=== PATIENT | female | born 1985 | race Caucasian/White ===

== ENCOUNTER 2017-08-03 13:48 | Emergency (ER) | payer OTHER ==
[~2017-08-03] VITALS: Ht 160 cm; Wt 56.0 kg
[2017-08-03 13:53] VITALS: TEMP 36.9; Ht 160 cm; Wt 56.0 kg
[2017-08-03] MEDS ORDERED: KETOROLAC TROMETHAMINE 30 MG/ML VIAL IV STA (14:05)
[2017-08-03] MEDS ORDERED: OPTIRAY 320 IV PRN (14:15)
[2017-08-03 14:21] LABS: BASO % 0.1 %; BASO ABS # 0.01 K/uL (0-0.2); EOS % 0.4 %; EOS ABS # 0.05 K/uL (0-0.5); HEMATOCRIT 38.2 % (37-47); HEMOGLOBIN 13.1 g/dL (12.0-16.0); IG# 0.04 K/uL (0.00-0.02); LYMPH % 12.8 %; LYMPH ABS # 1.52 K/uL (1.2-3.4); MEAN CELL VOLUME 90.5 fL (80-100); MEAN CORPUSCULAR HGB CONC 34.3 g/dl (32-36); MEAN PLATELET VOLUME 10.7 fL (7.4-10.4); MONO % 6.5 %; MONO ABS # 0.78 K/uL (0.11-0.59); NEUT % 79.9 %; NEUT ABS # 9.52 K/uL (1.4-6.5); PLATELET COUNT 224 K/uL (130-400); RED CELL DISTRIBUTION WIDTH CV 12.9 % (11.5-14.5); RED CELL DISTRIBUTION WIDTH SD 42.7 fL (36.4-46.3); WHITE BLOOD COUNT 11.92 K/uL (4.8-10.8)
--- NOTE | 2017-08-03 14:28 | EMERGENCY ROOM VISIT NOTE ---
History Report prepared by Kristianibalissa: Cyn Casanova Under the Supervision of: Dr. Travis Porter M.D. First contact with patient: 13:53 Chief Complaint: ABDOMINAL PAIN Stated Complaint: ABDOMINAL PAIN Nursing Triage Summary: pt to the ED via EMS with c/o abd pain and cramping after having IUD placed today at [facility] no bleeding History of Present Illness The patient is a 32 year old female who presents to the Emergency Room with complaints of persistent abdominal pain since earlier this morning. She had an IUD placed this morning at [facility]. She rates her pain as a 6 /10 to an 8/10 in severity and describes it as feeling like "cramping". Ibuprofen and heat pads have provided minor relief. She has experienced no vaginal bleeding since the procedure. She also complains of some nausea with the pain. The patient denies LOC, headache, fevers, chills, diaphoresis, visual changes, neck pain, chest pain, breathing difficulties, vomiting, back pain, melena, hematochezia, urinary symptoms, numbness, weakness, lymphadenopathy, rash, or other complaints. Source of History: patient Onset: earlier this morning Position: abdomen Symptom Intensity: 6/10 to 8/10 Quality: cramping Timing: other (persistent) Associated Symptoms: + nausea Review of Systems See HPI for pertinent positives and negatives. A total of ten systems were reviewed and were otherwise negative. Past Medical & Surgical Medical Problems: (1) Anxiety (2) Depression Social History Alcohol Use: occasionally Drug Use: none Marital Status: single Housing Status: lives with roommate Occupation Status: [id number] student Current/Historical Medications Scheduled Bupropion (Wellbutrin-Xl), 300 MG PO DAILY Buspirone Hcl (Buspirone Hcl), 10 MG PO TID Allergies Coded Allergies: No Known Allergies (Unverified , 08/03/17) Physical Exam Vital Signs Date Time Temp Pulse Resp B/P (MAP) Pulse Ox O2 Delivery O2 Flow Rate FiO2 08/03/17 16:19 93 15 121/87 97 08/03/17 15:13 78 23 121/78 100 Room Air 08/03/17 14:35 68 08/03/17 13:53 36.9 58 18 116/76 98 Physical Exam GENERAL: Awake, alert, uncomfortable-appearing, in no distress HENT: Normocephalic, atraumatic. Oropharynx unremarkable. EYES: Normal conjunctiva. Sclera non-icteric. NECK: Supple. No nuchal rigidity. FROM. No masses. RESPIRATORY: Clear to auscultation. No wheezes. CARDIAC: Normal rate. Normal rhythm. No murmurs. No rubs. Extremities warm and well perfused. Pulses equal. No JVD. GI: Soft, non-distended. Bilateral lower abdominal tenderness to palpation. No rebound or guarding. No masses. RECTAL: Deferred. MUSCULOSKELETAL: Atraumatic. Chest examination reveals no tenderness. The back is symmetrical on inspection without obvious abnormality. There is no CVA tenderness to palpation. No joint edema. LOWER EXTREMITIES: Calves are equal size bilaterally and non-tender. No edema. No discoloration. NEURO: Normal sensorium. No sensory or motor deficits noted. SKIN: No rash or jaundice noted. Medical Decision & Procedures ER Provider Diagnostic Interpretation: Radiology results as stated below per my review and radiologist interpretation: ABD/PELVIS IV CONTRAST ONLY CT DOSE: 349.87 mGycm HISTORY: Pain lower abd pain, s/p IUD placement. ?perforation TECHNIQUE: Multiaxial CT images of the abdomen and pelvis were performed following the use of intravenous contrast. A dose lowering technique was utilized adhering to the principles of ALARA. COMPARISON STUDY: None. FINDINGS: The lung bases are clear. The liver, spleen, gallbladder, pancreas, kidneys, and adrenal glands are within normal limits. No bowel wall thickening or obstruction. The pelvic organs are unremarkable. No suspicious lytic or blastic osseous lesions. No evidence for abscess or collection. Intrauterine device appearing to be within the central uterine canal. Normal appendix IMPRESSION: No significant abnormality identified within the abdomen or pelvis. Intrauterine device appears to be placed appropriately. No evidence for obstruction or perforation based on this exam. The above report was generated using voice recognition software. It may contain grammatical, syntax or spelling errors. Electronically signed by: Talha Giles M.D. 08/03/2017 3:05 PM Laboratory Results 08/03/17 14:10 Red Blood Count 4.22, Mean Corpuscular Volume 90.5, Mean Corpuscular Hemoglobin 31.0, Mean Corpuscular Hemoglobin Concent 34.3, Mean Platelet Volume 10.7, Neutrophils (%) (Auto) 79.9, Lymphocytes (%) (Auto) 12.8, Monocytes (%) (Auto) 6.5, Eosinophils (%) (Auto) 0.4, Basophils (%) (Auto) 0.1, Neutrophils # (Auto) 9.52, Lymphocytes # (Auto) 1.52, Monocytes # (Auto) 0.78, Eosinophils # (Auto) 0.05, Basophils # (Auto) 0.01 08/03/17 14:10 Test 08/03/17 14:10 08/03/17 15:20 White Blood Count 11.92 K/uL (4.8-10.8) Red Blood Count 4.22 M/uL (4.2-5.4) Hemoglobin 13.1 g/dL (12.0-16.0) Hematocrit 38.2 % (37-47) Mean Corpuscular Volume 90.5 fL (80-100) Mean Corpuscular Hemoglobin 31.0 pg (25-34) Mean Corpuscular Hemoglobin Concent 34.3 g/dl (32-36) Platelet Count 224 K/uL (130-400) Mean Platelet Volume 10.7 fL (7.4-10.4) Neutrophils (%) (Auto) 79.9 % Lymphocytes (%) (Auto) 12.8 % Monocytes (%) (Auto) 6.5 % Eosinophils (%) (Auto) 0.4 % Basophils (%) (Auto) 0.1 % Neutrophils # (Auto) 9.52 K/uL (1.4-6.5) Lymphocytes # (Auto) 1.52 K/uL (1.2-3.4) Monocytes # (Auto) 0.78 K/uL (0.11-0.59) Eosinophils # (Auto) 0.05 K/uL (0-0.5) Basophils # (Auto) 0.01 K/uL (0-0.2) RDW Standard Deviation 42.7 fL (36.4-46.3) RDW Coefficient of Variation 12.9 % (11.5-14.5) Immature Granulocyte % (Auto) 0.3 % Immature Granulocyte # (Auto) 0.04 K/uL (0.00-0.02) Anion Gap 5.0 mmol/L (3-11) Est Creatinine Clear Calc Drug Dose 101.5 ml/min Estimated GFR () 136.7 Estimated GFR (Non- 118.0 BUN/Creatinine Ratio 16.3 (10-20) Calcium Level 8.5 mg/dl (8.5-10.1) Total Bilirubin 0.2 mg/dl (0.2-1) Direct Bilirubin < 0.1 mg/dl (0-0.2) Aspartate Amino Transf (AST/SGOT) 19 U/L (15-37) Alanine Aminotransferase (ALT/SGPT) 24 U/L (12-78) Alkaline Phosphatase 88 U/L (45-117) Total Protein 6.4 gm/dl (6.4-8.2) Albumin 3.7 gm/dl (3.4-5.0) Lipase 131 U/L (73-393) Human Chorionic Gonadotropin, Qual NEG (NEG) Urine Color YELLOW Urine Appearance CLEAR (CLEAR) Urine pH 8.5 (4.5-7.5) Urine Specific [place] 1.045 (1.000-1.030) Urine Protein NEG (NEG) Urine Glucose (UA) NEG (NEG) Urine Ketones NEG (NEG) Urine Occult Blood NEG (NEG) Urine Nitrite NEG (NEG) Urine Bilirubin NEG (NEG) Urine Urobilinogen NEG (NEG) Urine Leukocyte Esterase NEG (NEG) Laboratory results reviewed by me Medications Administered Medications (Trade) Dose Ordered Sig/Saima Route Start Time Stop Time Status Last Admin Dose Admin Ketorolac Tromethamine (Toradol Inj) 10 mg NOW STAT IV 08/03/17 14:05 08/03/17 14:08 DC 08/03/17 14:16 10 MG Ondansetron HCl (Zofran Inj) 4 mg NOW STAT IV 08/03/17 15:26 08/03/17 15:28 DC 08/03/17 15:33 4 MG Hydromorphone HCl (Dilaudid Inj) 0.5 mg NOW STAT IV 08/03/17 15:26 08/03/17 15:28 DC 08/03/17 15:33 0.5 MG Acetaminophen/ Hydrocodone Bitart ([place]wl 5/325mg Home Pack) 1 homepack UD ONCE PO 08/03/17 16:15 08/03/17 16:16 DC 08/03/17 16:07 1 HOMEPACK Ondansetron HCl (ZOFRAN ODT 4MG Home Pack) 1 homepack UD ONCE PO 08/03/17 16:15 08/03/17 16:16 DC 08/03/17 16:07 1 HOMEPACK Laboratory results reviewed by me ED Course 1405: Toradol 10 mg IV. 1408: The patient was evaluated in room A4B. A complete history and physical exam was performed. 1525: I reevaluated the patient. She is feeling better but still in some pain. I will place orders. 1526: Dilaudid 0.5 mg IV, Zofran 4 mg IV. 1559: I reevaluated the patient. She is feeling much better. I discussed her results and discharge instructions and she verbalized complete understanding and agreement. 1615: Zofran 4 mg 1 homepack PO, [place]wl 5/325 mg 1 homepack PO. Medical Decision Triage Nursing notes reviewed. The patient's presentation and history were concerning for abdominal pain s/p IUD placement. Etiologies such as uterine perforation, uterine cramping, complication of IUD placement, appendicitis, diverticulitis, obstruction, inflammatory bowel disease, renal colic, PUD, biliary pathology, pancreatitis, mesenteric ischemia , aortic pathology, infections, genitourinary, UTI, perforated viscus, as well as others were entertained. Patient was evaluated. She was quite tender in the lower part of her abdomen. She was given a dose of IV Toradol. Her CBC revealed a mild leukocytosis. Chemistries unremarkable. The patient was sent for CT imaging. Patient had a unremarkable chemistry panel, urinalysis and test. She underwent CT imaging and this was negative. IUD appears to be in good position. The patient was feeling better but still had pain after the Toradol. She was given a small dose of IV Dilaudid. She was also given Zofran. Patient was reassessed. She was feeling much better and her pain was nearly resolved. I discussed conservative management with her. She was given a White Owl and Zofran home pack. She will use ibuprofen. She will follow-up with women's health tomorrow. If she worsens in any way she will be back. I gave my usual and customary discussion regarding this issue. By the evaluation outlined above other emergent etiologies such as those listed in the differential, as well as others, were deemed relatively unlikely. The patient was educated about the findings as listed above. All questions were answered and the patient was pleased with the treatment. Return instructions were outlined and the patient was discharged in stable condition. The patient was referred to [facility] for follow-up for a recheck of the current condition. Medication Reconcilliation Current Medication List: was personally reviewed by me Blood Pressure Screening Patient's blood pressure: Normal blood pressure Blood pressure disposition: Did not require urgent referral Impression Primary Impression: Lower abdominal pain Additional Impression: IUD (intrauterine device) in place Scribe Attestation The scribe's documentation has been prepared under my direction and personally reviewed by me in its entirety. I confirm that the note above accurately reflects all work, treatment, procedures, and medical decision making performed by me. Departure Information Dispostion Home / Self-Care Referrals [facility] (PCP) Patient Instructions My [facility] Additional Instructions ABDOMINAL PAIN INSTRUCTIONS: DO NOT drive, drink alcohol, operate machinery, or perform dangerous activities today. You were given medications in the ER that can affect your ability to safely function or operate a vehicle. Hydrocodone/acetaminophen 5/325mg: Take 1 pill every 6 hours as needed for pain. Avoid additional Acetaminophen/Tylenol, alcohol, operating machinery or dangerous equipment, working on ladders or roofs, DRIVING, or situations where being under the influence may be dangerous. It is recommended to use a stool softener such as Colace, 100mg twice daily while taking this medication to avoid constipation. Zofran 4 mg oral dissolving tablets: take one tablet and allow it to melt in your mouth every 4 hours as needed for nausea. Ibuprofen(Motrin, Advil) may be used for fever or pain. Use 600mg every six hours as needed. Take with food. Avoid using more than 2400mg in a 24 hour period. Do not use 2400mg per day for more than three consecutive days without physician direction. Prolonged inappropriate use can lead to stomach upset or ulcers. Rest and drink plenty of fluids as tolerated. Slow sips of water or sports drinks are recommended instead of large amounts all at once. Continue current medications. Once your stomach is settled start with a clear liquid diet (jello, soup broth, etc.) and then advance as tolerated. You should avoid full, heavy meals for about 24 hrs from the time your symptoms resolved. Return to the ER immediately for worsening or persistent abdominal pain, vomiting, fevers, chest pains, difficulty breathing, black or bloody stools, worsening of your condition, or as needed. Follow up with [facility] tomorrow is for a recheck of your current condition. Problem Qualifiers
[2017-08-03] MEDS ORDERED: BUPRTAB51 PO (14:39)
[2017-08-03] MEDS ORDERED: BUSP-8 PO (14:39)
[2017-08-03 14:41] LABS: ALBUMIN 3.7 gm/dl (3.4-5.0); ALT/SGPT 24 U/L (12-78); BLOOD UREA NITROGEN 11 mg/dl (7-18); CALCIUM 8.5 mg/dl (8.5-10.1); CARBON DIOXIDE 26 mmol/L (21-32); CREATININE 0.67 mg/dl (0.60-1.20); GLUCOSE 122 mg/dl (70-99); LIPASE 131 U/L (73-393); POTASSIUM 4.1 mmol/L (3.5-5.1); SODIUM 139 mmol/L (136-145)
[2017-08-03 14:44] LABS: ALKALINE PHOSPHATASE 88 U/L (45-117); AST/SGOT 19 U/L (15-37); TOTAL PROTEIN 6.4 gm/dl (6.4-8.2)
--- NOTE | 2017-08-03 15:06 | DIAGNOSTIC IMAGING REPORT ---
ABD/PELVIS IV CONTRAST ONLY CT DOSE: 349.87 mGycm HISTORY: Pain lower abd pain, s/p IUD placement. ?perforation TECHNIQUE: Multiaxial CT images of the abdomen and pelvis were performed following the use of intravenous contrast. A dose lowering technique was utilized adhering to the principles of ALARA. COMPARISON STUDY: None. FINDINGS: The lung bases are clear. The liver, spleen, gallbladder, pancreas, kidneys, and adrenal glands are within normal limits. No bowel wall thickening or obstruction. The pelvic organs are unremarkable. No suspicious lytic or blastic osseous lesions. No evidence for abscess or collection. Intrauterine device appearing to be within the central uterine canal. Normal appendix IMPRESSION: No significant abnormality identified within the abdomen or pelvis. Intrauterine device appears to be placed appropriately. No evidence for obstruction or perforation based on this exam. The above report was generated using voice recognition software. It may contain grammatical, syntax or spelling errors. Electronically signed by: Talha Giles M.D. 08/03/2017 3:05 PM Dictated Date/Time: 08/03/2017 3:03 PM
[2017-08-03] MEDS ORDERED: ONDANSETRON INJ 2 MG/ML 2 ML VIAL IV STA (15:26)
[2017-08-03] MEDS ORDERED: HYDROmorphone INJ 0.5 MG/0.5 ML SYR IV STA (15:26)
[2017-08-03] MEDS ORDERED: ONDANSETRON HOME PACK 4MG OD TAB PO ONE (16:15)
[2017-08-03] MEDS ORDERED: NORCO 5/325MG HOME PACK PO ONE (16:15)
[2017-08-03 16:19] VITALS: BP 121/87; PULSE 93; O2SAT 97
== END 2017-08-03 16:21 | disposition home or self-care (01) ==
LOC: EDBD 13:48 → C.EDA 13:52
DX: R10.30 Lower abdominal pain, unspecified (principal); Z97.5 Presence of (intrauterine) contraceptive device; R11.0 Nausea; F41.9 Anxiety disorder, unspecified; F32.9 Major depressive disorder, single episode, unspecified